=== PATIENT | female | born 1925 | race Caucasian/White ===

== ENCOUNTER 2016-07-20 10:57 | Inpatient (IN) | payer OTHER ==
[~2016-07-20] VITALS: Ht 160 cm; Wt 73.0 kg
[2016-07-20] VITALS (9 sets, daily range): BP systolic 149–190; BP diastolic 53–91
[~2016-07-20 10:57] MED LIST: AMLODIPINE BES1 TAB PO; ATENOLOL100 M1 PO; ATENOLOL25 MG PO; BENTYL10 MG PO; CALCIUM 600 + V1 TA1 PO; CARDURA8 MG PO; COUMADIN2 M1 PO; COUMADIN4 M2 PO; COZAAR100 MG PO; Cimetidine300 MG PO; FUROSEMIDE20 M1 PO; HCTZ/TRIAMTEREN1 CA2 PO; HYDROCODONE BIT1 T11 PO; KCL PO; KLOR-CON M1010 MEQ PO; LOSARTAN POTASS50 M1 PO; NORCO 5-325 TA1 EACH PO; NORVASC5 MG PO; OMEPRAZOLE D/R20 MG PO; POTASSIUM CHLO10 ME5 PO; TOPROL XL50 M1 PO; TRIAMTERENE/HCT1 TA3 PO; TYLENOL325 M2 PO; WARFARIN SOD5 MG PO
[2016-07-20] MEDS ORDERED: MIRTAZAPINE7.5 MG PO (11:06)
[2016-07-20] MEDS ORDERED: LOSARTAN POTAS100 M1 PO (11:06)
[2016-07-20] MEDS ORDERED: ELIQUIS2.5 M1 PO (11:06)
[2016-07-20 11:33] LABS: BASO % 0.5 % (0.0-1.0); EOS % 0.5 % (1.0-4.0); HEMATOCRIT 41.6 % (37.0-47.0); HEMOGLOBIN 13.4 g/dl (12.0-16.0); LYMPH # 1.7 10*3/uL (1.3-4.4); LYMPH % 20.6 % (27.0-41.0); MEAN CELL VOLUME 93.3 fl (81.0-99.0); MEAN CORPUSCULAR HGB CONC 32.2 g/dl (33.0-37.0); MEAN PLATELET VOLUME 10.7 fl (9.6-12.3); MONO # 0.6 10*3/uL (0.1-1.0); MONO % 7.5 % (3.0-9.0); NEUT # 5.9 10*3/uL (2.3-7.9); NEUT % 70.5 % (47.0-73.0); PLATELET COUNT AUTOMATED 175 10*3/uL (130-400); RED BLOOD COUNT 4.46 10*6/uL (4.10-5.10); WHITE BLOOD COUNT 8.3 10*3/uL (4.8-10.8)
[2016-07-20 11:42] LABS: PROTHROMBIN TIME 10.5 SECONDS (9.0-12.4)
[2016-07-20 11:49] LABS: ALBUMIN 3.7 gm/dl (3.1-4.5); ALKALINE PHOSPHATASE 98 U/L (45-117); BILIRUBIN, TOTAL 0.6 mg/dl (0.2-1.0); BUN 24 mg/dl (7-24); CARBON DIOXIDE 30 mmol/L (21-32); CHLORIDE 107 mmol/L (98-107); EST GLOM FILT AFRICAN AMERICAN 51 ml/min; GLUCOSE 82 mg/dL (65-99); MAGNESIUM 1.8 mg/dL (1.5-2.1); POTASSIUM 3.5 mmol/L (3.5-5.1); SGOT/AST 31 IU/L (3-35); SGPT/ALT 18 U/L (12-78); SODIUM 145 mmol/L (136-145); TOTAL PROTEIN 7.1 gm/dL (6.4-8.2)
[2016-07-20 11:50] LABS: TROPONIN I < 0.015 ng/ml (<0.045)
[2016-07-20] MEDS ORDERED: METOPROLOL SUCC50 M1 PO (14:12)
[2016-07-21] VITALS: BP 133/53
[2016-07-21 06:37] LABS: BASO % 0.5 % (0.0-1.0); EOS # 0.1 10*3/uL (0.0-0.4); EOS % 1.2 % (1.0-4.0); HEMATOCRIT 36.4 % (37.0-47.0); HEMOGLOBIN 11.9 g/dl (12.0-16.0); LYMPH # 1.8 10*3/uL (1.3-4.4); LYMPH % 28.3 % (27.0-41.0); MEAN CELL VOLUME 93.6 fl (81.0-99.0); MEAN CORPUSCULAR HGB 30.6 pg (27.0-31.0); MEAN CORPUSCULAR HGB CONC 32.7 g/dl (33.0-37.0); MEAN PLATELET VOLUME 10.8 fl (9.6-12.3); MONO # 0.6 10*3/uL (0.1-1.0); MONO % 8.6 % (3.0-9.0); NEUT # 3.9 10*3/uL (2.3-7.9); NEUT % 61.1 % (47.0-73.0); PLATELET COUNT AUTOMATED 146 10*3/uL (130-400); RED BLOOD COUNT 3.89 10*6/uL (4.10-5.10); RED CELL DISTRI WIDTH 14.1 % (0-14.5); WHITE BLOOD COUNT 6.4 10*3/uL (4.8-10.8)
[2016-07-21 06:57] LABS: HEMOGLOBIN A1c 5.8 % (4.8-5.6)
[2016-07-21 07:05] LABS: FREE T4 1.18 ng/dl (0.76-1.46); POTASSIUM 3.2 mmol/L (3.5-5.1)
[2016-07-21 07:11] LABS: THYROID STIM HORMONE (HS) 4.2 uIU/ml (0.358-4.75)
[2016-07-21 07:51] LABS: VITAMIN D, 25-HYDROXY 22.7 ng/mL (30-100)
[2016-07-21 07:52] LABS: FOLIC ACID 23.63 ng/mL (>5.38)
[2016-07-21 08:00] VITALS: BP 136/78
[2016-07-21 12:00] VITALS: BP 136/88
[2016-07-21 16:00] VITALS: BP 134/40
[2016-07-21 21:51] VITALS: BP 138/55
[2016-07-22] VITALS: BP 125/47
[2016-07-22 06:32] LABS: BASO # 0.1 10*3/uL (0.0-0.1); BASO % 0.8 % (0.0-1.0); EOS # 0.1 10*3/uL (0.0-0.4); EOS % 1.4 % (1.0-4.0); HEMATOCRIT 35.7 % (37.0-47.0); HEMOGLOBIN 11.4 g/dl (12.0-16.0); LYMPH % 30.8 % (27.0-41.0); MEAN CELL VOLUME 95.2 fl (81.0-99.0); MEAN CORPUSCULAR HGB 30.4 pg (27.0-31.0); MEAN CORPUSCULAR HGB CONC 31.9 g/dl (33.0-37.0); MEAN PLATELET VOLUME 11.6 fl (9.6-12.3); MONO # 0.7 10*3/uL (0.1-1.0); MONO % 10.8 % (3.0-9.0); NEUT # 3.7 10*3/uL (2.3-7.9); NEUT % 55.9 % (47.0-73.0); PLATELET COUNT AUTOMATED 140 10*3/uL (130-400); RED BLOOD COUNT 3.75 10*6/uL (4.10-5.10); RED CELL DISTRI WIDTH 14.1 % (0-14.5); WHITE BLOOD COUNT 6.6 10*3/uL (4.8-10.8)
[2016-07-22 06:55] LABS: POTASSIUM 4.2 mmol/L (3.5-5.1)
[2016-07-22 08:00] VITALS: BP 136/76
[2016-07-22] MEDS ORDERED: VITAMIN D400 I1 PO (09:57)
== END 2016-07-22 13:23 | disposition other institution (70) | DRG 553 ==
LOC: ED 10:57 → EDHOLD 13:27 → 5E 13:27
PROVIDERS: Internal Medicine; Student in an Organized Health Care Education/Training Program
DX: M17.0 Bilateral primary osteoarthritis of knee (principal); N17.0 Acute kidney failure with tubular necrosis; E87.0 Hyperosmolality and hypernatremia; I50.32 Chronic diastolic (congestive) heart failure; I13.0 Hypertensive heart and chronic kidney disease with heart failure and stage 1 through stage 4 chronic kidney disease, or unspecified chronic kidney disease; I16.0 Hypertensive urgency; N18.3 Chronic kidney disease, stage 3 (moderate); I48.0 Paroxysmal atrial fibrillation; K21.9 Gastro-esophageal reflux disease without esophagitis; E87.6 Hypokalemia; E55.9 Vitamin D deficiency, unspecified; Z96.1 Presence of intraocular lens; Z98.49 Cataract extraction status, unspecified eye; Z82.5 Family history of asthma and other chronic lower respiratory diseases; Z82.3 Family history of stroke; Z88.6 Allergy status to analgesic agent; Z79.1 Long term (current) use of non-steroidal anti-inflammatories (NSAID); Z79.899 Other long term (current) drug therapy

== ENCOUNTER 2016-12-14 09:32 | Emergency (ER) | payer OTHER, MEDICAID ==
[~2016-12-14] VITALS: Wt 70.3 kg
[~2016-12-14 09:32] MED LIST changes: +ELIQUIS2.5 M1 PO; +LOSARTAN POTAS100 M1 PO; +METOPROLOL SUCC50 M1 PO; +MIRTAZAPINE7.5 MG PO; +VITAMIN D400 I1 PO
[2016-12-14] MEDS ORDERED: TRAMADOL HCL50 MG PO (09:57)
[2016-12-14] MEDS ORDERED: NORVASC10 MG PO (10:02)
[2016-12-14] MEDS ORDERED: KLOR-CON 1010 ME1 PO (10:03)
[2016-12-14 10:05] LABS: BASO % 0.5 % (0.0-1.0); EOS # 0.1 10*3/uL (0.0-0.4); EOS % 0.9 % (1.0-4.0); HEMATOCRIT 40.1 % (37.0-47.0); HEMOGLOBIN 12.9 g/dl (12.0-16.0); LYMPH # 2.3 10*3/uL (1.3-4.4); LYMPH % 26.3 % (27.0-41.0); MEAN CELL VOLUME 90.3 fl (81.0-99.0); MEAN CORPUSCULAR HGB 29.1 pg (27.0-31.0); MEAN CORPUSCULAR HGB CONC 32.2 g/dl (33.0-37.0); MEAN PLATELET VOLUME 10.8 fl (9.6-12.3); MONO # 0.6 10*3/uL (0.1-1.0); MONO % 6.3 % (3.0-9.0); NEUT # 5.7 10*3/uL (2.3-7.9); NEUT % 65.3 % (47.0-73.0); PLATELET COUNT AUTOMATED 185 10*3/uL (130-400); RED BLOOD COUNT 4.44 10*6/uL (4.10-5.10); RED CELL DISTRI WIDTH 13.9 % (0-14.5); WHITE BLOOD COUNT 8.8 10*3/uL (4.8-10.8)
[2016-12-14 10:20] LABS: ALBUMIN 3.5 gm/dl (3.1-4.5); CREATININE 1.21 mg/dL (0.55-1.02); POTASSIUM 3.5 mmol/L (3.5-5.1); TOTAL PROTEIN 6.4 gm/dL (6.4-8.2)
[2016-12-14 11:15] LABS: BILIRUBIN NEGATIVE (NEGATIVE); BLOOD 3+ (NEGATIVE); CLARITY CLEAR (CLEAR); COLOR YELLOW (YELLOW); GLUCOSE NEGATIVE (NEGATIVE); KETONE NEGATIVE (NEGATIVE); LEUKO ESTERASE 2+ (NEGATIVE); NITRITE POSITIVE (NEGATIVE); PH 5.5 (5.0-9.0); UROBILINOGEN 0.2 E.U./dl (0.2-1.0)
[2016-12-14 11:27] LABS: BACTERIA 3+; RBC TNTC rbc/hpf (0-2); WBC TNTC wbc/hpf (0-5)
== END 2016-12-14 13:44 | disposition short-term general hospital (02) ==
LOC: ED 09:32
PROVIDERS: Physician Assistant
DX: S72.091A Other fracture of head and neck of right femur, initial encounter for closed fracture (principal); Z88.5 Allergy status to narcotic agent; Z79.899 Other long term (current) drug therapy; W19.XXXA Unspecified fall, initial encounter; Y93.01 Activity, walking, marching and hiking; Y99.8 Other external cause status; Y92.090 Kitchen in other non-institutional residence as the place of occurrence of the external cause